=== PATIENT | female | born 1985 | race Caucasian/White ===

== ENCOUNTER 2017-05-16 08:45 | Emergency (ER) | payer OTHER ==
[2017-05-16 11:09] LABS: BASO % 0.2 % (0.0-1.0); EOS % 0.6 % (0.0-3.0); HEMATOCRIT 38.4 % (36.0-47.0); HEMOGLOBIN 12.7 g/dl (12.0-16.0); IMMATURE GRANULOCYTE % 0.2 % (0-3.0); LYMPH # 1.7 10^3/uL (1.5-4.5); LYMPH % 33.5 % (24.0-44.0); MEAN CORPUSCULAR HEMOGLOBIN 26.7 pg (27.0-33.0); MEAN CORPUSCULAR HGB CONC 33.1 g/dl (32.0-36.5); MEAN CORPUSCULAR VOLUME 80.8 fl (80.0-96.0); MONO # 0.5 10^3/uL (0.0-0.8); NEUTROPHILS # 2.8 10^3/uL (1.8-7.7); NEUTROPHILS % 56.5 % (36.0-66.0); PLATELET COUNT, AUTOMATED 163 10^3/uL (150-450); RED BLOOD COUNT 4.75 10^6/uL (4.00-5.40); RED CELL DISTRIBUTION WIDTH 14.6 % (11.5-14.5)
[2017-05-16 11:23] LABS: CALCIUM OXALATE CRYSTALS RFX SMALL; KETONE, URINE AUTO RFX TRACE mg/dL (NEGATIVE); LEUKOCYTE ESTERASE UR AUTO RFX NEGATIVE (NEGATIVE); MUCUS, URINE RFX SMALL (NEGATIVE); NITRITE, URINE AUTO RFX NEGATIVE (NEGATIVE); RBC, URINE AUTO RFX 1 /HPF (0-3); SPECIFIC GRAVITY UR AUTO RFX 1.027 (1.002-1.035); SQUAM EPITHELIAL CELL UR AURFX 1 /HPF (0-6); WBC, URINE AUTO RFX 0 /HPF (0-3)
[2017-05-16 11:55] LABS: ANION GAP 9 MEQ/L (8-16); BLOOD UREA NITROGEN 10 MG/DL (7-18); CALCIUM LEVEL 8.6 MG/DL (8.5-10.1); CARBON DIOXIDE LEVEL 25 MEQ/L (21-32); CHLORIDE LEVEL 105 MEQ/L (98-107); CREATININE FOR GFR 0.61 MG/DL (0.55-1.30); GLOMERULAR FILTRATION RATE > 60.0 (>60); GLUCOSE, FASTING 106 MG/DL (70-100); HCG, SERUM QUANTITATIVE 39051 MIU/ML; POTASSIUM SERUM 4.1 MEQ/L (3.5-5.1); SODIUM LEVEL 139 MEQ/L (136-145)
[2017-05-16 16:06] LABS: CHLAMYDIA DNA AMPLIFICATION NEGATIVE (NEGATIVE); GC DNA AMPLIFICATION NEGATIVE (NEGATIVE)
== END 2017-05-16 13:32 | disposition home or self-care (01) ==
LOC: M ED 08:45
DX: O26.851 Spotting complicating pregnancy, first trimester (principal); N93.9 Abnormal uterine and vaginal bleeding, unspecified; O24.415 Gestational diabetes mellitus in pregnancy, controlled by oral hypoglycemic drugs; O16.1 Unspecified maternal hypertension, first trimester; O99.281 Endocrine, nutritional and metabolic diseases complicating pregnancy, first trimester; E28.2 Polycystic ovarian syndrome; O99.341 Other mental disorders complicating pregnancy, first trimester; F33.9 Major depressive disorder, recurrent, unspecified; F41.9 Anxiety disorder, unspecified; O99.611 Diseases of the digestive system complicating pregnancy, first trimester; K21.9 Gastro-esophageal reflux disease without esophagitis; Z3A.01 Less than 8 weeks gestation of pregnancy; Z88.8 Allergy status to other drugs, medicaments and biological substances; Z88.1 Allergy status to other antibiotic agents; Z88.2 Allergy status to sulfonamides; Z86.69 Personal history of other diseases of the nervous system and sense organs; Z87.448 Personal history of other diseases of urinary system; Z87.891 Personal history of nicotine dependence
CPT/HCPCS: 76801

== ENCOUNTER → 2017-06-11 | Outpatient (CLI) | payer OTHER | LOC: M EKG 16:49 | DX: O24.111 Pre-existing type 2 diabetes mellitus, in pregnancy, first trimester (principal); Z3A.09 9 weeks gestation of pregnancy; E11.9 Type 2 diabetes mellitus without complications ==

== ENCOUNTER 2017-07-12 13:01 | Emergency (ER) | payer OTHER ==
[2017-07-12 14:25] LABS: HEMATOCRIT 36.4 % (36.0-47.0); HEMOGLOBIN 12.1 g/dl (12.0-15.5); MEAN CORPUSCULAR HEMOGLOBIN 26.6 pg (27.0-33.0); MEAN CORPUSCULAR HGB CONC 33.2 g/dl (32.0-36.5); PLATELET COUNT, AUTOMATED 177 10^3/uL (150-450); RED BLOOD COUNT 4.55 10^6/uL (4.00-5.40); RED CELL DISTRIBUTION WIDTH 14.1 % (11.5-14.5); WHITE BLOOD COUNT 5.8 10^3/uL (4.0-10.0)
== END 2017-07-12 15:18 | disposition home or self-care (01) ==
LOC: M ED 13:01
DX: O99.282 Endocrine, nutritional and metabolic diseases complicating pregnancy, second trimester (principal); E86.0 Dehydration; O24.419 Gestational diabetes mellitus in pregnancy, unspecified control; O16.2 Unspecified maternal hypertension, second trimester; O98.512 Other viral diseases complicating pregnancy, second trimester; E28.2 Polycystic ovarian syndrome; O99.612 Diseases of the digestive system complicating pregnancy, second trimester; K21.9 Gastro-esophageal reflux disease without esophagitis; Z3A.16 16 weeks gestation of pregnancy; Z79.84 Long term (current) use of oral hypoglycemic drugs; Z79.899 Other long term (current) drug therapy; Z88.1 Allergy status to other antibiotic agents; Z88.2 Allergy status to sulfonamides; Z88.8 Allergy status to other drugs, medicaments and biological substances; Z98.890 Other specified postprocedural states; Z87.19 Personal history of other diseases of the digestive system; Z87.42 Personal history of other diseases of the female genital tract
CPT/HCPCS: 85027

== ENCOUNTER → 2017-10-15 | Outpatient (CLI) | payer OTHER | LOC: M CARPUL 08:06 | DX: O24.113 Pre-existing type 2 diabetes mellitus, in pregnancy, third trimester (principal) | CPT/HCPCS: 93306 ==

== ENCOUNTER 2017-12-21 21:49 | Outpatient (CLI) | payer OTHER ==
[2017-12-21 22:11] LABS: HEMATOCRIT 39.3 % (36.0-47.0); MEAN CORPUSCULAR HEMOGLOBIN 27.4 pg (27.0-33.0); MEAN CORPUSCULAR HGB CONC 33.1 g/dl (32.0-36.5); MEAN CORPUSCULAR VOLUME 82.7 fl (80.0-96.0); PLATELET COUNT, AUTOMATED 177 10^3/uL (150-450); RED BLOOD COUNT 4.75 10^6/uL (4.00-5.40); WHITE BLOOD COUNT 7.9 10^3/uL (4.0-10.0)
[2017-12-21 22:35] LABS: ALT/SGPT 24 U/L (12-78); AST/SGOT 32 U/L (7-37); BILIRUBIN,TOTAL 0.2 MG/DL (0.2-1.0); CREATININE FOR GFR 0.72 MG/DL (0.55-1.30); GLOMERULAR FILTRATION RATE > 60.0 (>60); LDH LACTATE DEHYDROGENASE 170 U/L (84-246); URIC ACID 3.7 MG/DL (2.6-6.0)
[2017-12-21 22:55] LABS: TOTAL PROTEIN,RANDOM URINE 19.8 MG/DL (0.0-12.0)
== END 2017-12-21 23:40 | disposition home or self-care (01) ==
LOC: M LDO 21:49
DX: O99.89 Other specified diseases and conditions complicating pregnancy, childbirth and the puerperium (principal); R51 Headache; O47.1 False labor at or after 37 completed weeks of gestation; Z3A.38 38 weeks gestation of pregnancy
CPT/HCPCS: 59025

== ENCOUNTER 2017-12-25 22:18 | Inpatient (IN) | payer OTHER ==
[2017-12-26 00:20] LABS: HEMATOCRIT 37.9 % (36.0-47.0); HEMOGLOBIN 12.5 g/dl (12.0-15.5); MEAN CORPUSCULAR HEMOGLOBIN 27.5 pg (27.0-33.0); MEAN CORPUSCULAR VOLUME 83.5 fl (80.0-96.0); PLATELET COUNT, AUTOMATED 178 10^3/uL (150-450); RED BLOOD COUNT 4.54 10^6/uL (4.00-5.40); RED CELL DISTRIBUTION WIDTH 14.6 % (11.5-14.5); WHITE BLOOD COUNT 8.2 10^3/uL (4.0-10.0)
[2017-12-26] MEDS: LACTATED RINGER'S 1000 ML IV (00:23)
[2017-12-26] MEDS ORDERED: miSOPROStol 25 MCG 1/4 TAB (S0191) PV (00:45)
[2017-12-26] MEDS ORDERED: miSOPROStol 50 MCG 1/2 TAB (S0191) PO (01:00)
[2017-12-26] MEDS ORDERED: OXYTOCIN DRIP 30 UNITS in APPROPRIATE DILUENT 1 EA IV (01:15)
[2017-12-26 01:19] LABS: BEDSIDE GLUCOSE 123 MG/DL (70-105)
[2017-12-26 01:37] LABS: ALT/SGPT 24 U/L (12-78); AST/SGOT 26 U/L (7-37); BILIRUBIN,TOTAL 0.2 MG/DL (0.2-1.0); CREATININE FOR GFR 0.69 MG/DL (0.55-1.30); GLOMERULAR FILTRATION RATE > 60.0 (>60); LDH LACTATE DEHYDROGENASE 185 U/L (84-246); URIC ACID 3.3 MG/DL (2.6-6.0)
[2017-12-26 03:21] LABS: BEDSIDE GLUCOSE 60 MG/DL (70-105)
[2017-12-26 05:02] LABS: BEDSIDE GLUCOSE 103 MG/DL (70-105)
[2017-12-26] MEDS: ONDANSETRON 4MG/2ML VIAL (J2405) IV (06:41)
[2017-12-26 07:22] LABS: BEDSIDE GLUCOSE 93 MG/DL (70-105)
[2017-12-26] MEDS: LR 1,000 ML IV ×2 (08:23→08:47)
[2017-12-26] MEDS ORDERED: LABETALOL 100 MG TAB PO (09:00)
[2017-12-26 09:07] LABS: BEDSIDE GLUCOSE 91 MG/DL (70-105)
[2017-12-26] MEDS ORDERED: FENTANYL 2MCG/ML ROPIVACAINE 0.2% IN 0.9% NACL 200ML IVBAG As Ordered (09:45)
[2017-12-26] MEDS ORDERED: REFRIGERATOR IV KEYS XX (10:30)
[2017-12-26] MEDS ORDERED: ePHEDrine SULFATE 25 MG/5 ML(5MG/ML) SYRINGE IV (10:30)
[2017-12-26] MEDS ORDERED: diphenhydrAMINE INJ 50MG/ML VIAL (J1200) IV (10:30)
[2017-12-26] MEDS ORDERED: ONDANSETRON 4MG/2ML VIAL (J2405) IV (10:30)
[2017-12-26] MEDS ORDERED: EPIDURAL COMMENT XX (10:30)
[2017-12-26] MEDS ORDERED: NALOXONE INJ 0.4 MG/1 ML VIAL (J2310) IV (10:30)
[2017-12-26] MEDS ORDERED: EPIDURAL/PCA KEYS XX (10:30)
[2017-12-26 11:12] LABS: BEDSIDE GLUCOSE 93 MG/DL (70-105)
[2017-12-26] MEDS: FENTANYL/ROPIVACAINE/NACL BAG 200 ML EPIDURAL (11:55)
[2017-12-26] MEDS: LIDOCAINE 1% MDV 20ML VIAL INFIL (12:39)
[2017-12-26] MEDS: OXYTOCIN DRIP 30 UNITS in APPROPRIATE DILUENT 1 EA IV ×2 (12:40→13:52)
[2017-12-26] MEDS: miSOPROStol 200 MCG TAB (S0191) PR ×2 (12:40→12:42)
[2017-12-26] MEDS: CARBOPROST TROMETHAMINE 250 MCG/ML AMP IM (12:40)
[2017-12-26 13:06] LABS: BEDSIDE GLUCOSE 101 MG/DL (70-105)
[2017-12-26] MEDS: BUTORPHANOL 2 MG/ML INJ (J0595) IV (13:43)
[2017-12-26] MEDS ORDERED: ACETAMINOPHEN TAB 650MG DOSE (2X325MG) PO (13:45)
[2017-12-26] MEDS ORDERED: METOCLOPRAMIDE INJ 10MG/2ML VIAL (J2765) IV (13:45)
[2017-12-26] MEDS ORDERED: MEASLES,MUMPS,RUBELLA VACCINE INJ (MMR-II) (90707) SC (13:45)
[2017-12-26] MEDS ORDERED: RHOGAM 300 MCG (1500 IU) INJ (J2790) IM (13:45)
[2017-12-26] MEDS: IBUPROFEN 800 MG TAB PO (18:04)
[2017-12-26] MEDS: DIBUCAINE 1% OINTMENT 30GM TOP (18:05)
[2017-12-26] MEDS: metFORMIN (GLUCOPHAGE) 500 MG TAB PO (21:00)
[2017-12-26] MEDS: DOCUSATE SODIUM 100 MG CAP PO (21:59)
[2017-12-26] MEDS: LABETALOL 100 MG TAB PO (21:59)
[2017-12-27 07:50] LABS: HEMATOCRIT 31.2 % (36.0-47.0); MEAN CORPUSCULAR HEMOGLOBIN 27.6 pg (27.0-33.0); MEAN CORPUSCULAR HGB CONC 32.7 g/dl (32.0-36.5); MEAN CORPUSCULAR VOLUME 84.6 fl (80.0-96.0); PLATELET COUNT, AUTOMATED 141 10^3/uL (150-450); RED BLOOD COUNT 3.69 10^6/uL (4.00-5.40); WHITE BLOOD COUNT 8.5 10^3/uL (4.0-10.0)
[2017-12-27 07:54] LABS: HEMOGLOBIN 10.2 g/dl (12.0-15.5)
[2017-12-27 08:05] LABS: GLUCOSE,RANDOM 93 MG/DL (LESS THAN 200)
[2017-12-27 08:34] LABS: ESTIMATED AVERAGE GLUCOSE 114 MG/DL (60-110); HEMOGLOBIN A1c 5.6 %
[2017-12-27] MEDS: FAMOTIDINE 20 MG TAB PO (08:41)
[2017-12-27] MEDS: DOCUSATE SODIUM 100 MG CAP PO ×2 (09:20→21:59)
[2017-12-27] MEDS: PRENATAL VITAMINS CHEWABLE TABLET PO (09:21)
[2017-12-27] MEDS: LABETALOL 100 MG TAB PO ×2 (09:21→21:58)
[2017-12-27] MEDS: metFORMIN (GLUCOPHAGE) 500 MG TAB PO ×2 (09:21→21:58)
[2017-12-27] MEDS: INFLUENZA QUADRIVALENT PF VACCINE 0.5ML SYRINGE (90686) IM (09:24)
[2017-12-27] MEDS ORDERED: medroxyPROGESTERone ACET IM SUSP 150 MG/ML VIAL (J1050) IM (10:00)
[2017-12-27] MEDS: DIBUCAINE 1% OINTMENT 30GM TOP (12:38)
[2017-12-27] MEDS: IBUPROFEN 800 MG TAB PO (23:54)
[2017-12-28] MEDS: DOCUSATE SODIUM 100 MG CAP PO (08:09)
[2017-12-28] MEDS: PRENATAL VITAMINS CHEWABLE TABLET PO ×2 (08:09→09:00)
[2017-12-28] MEDS: metFORMIN (GLUCOPHAGE) 500 MG TAB PO (08:09)
[2017-12-28] MEDS: LABETALOL 100 MG TAB PO (08:12)
[2017-12-28] MEDS: medroxyPROGESTERone ACET IM SUSP 150 MG/ML VIAL (J1050) IM (09:45)
== END 2017-12-28 10:30 | disposition home or self-care (01) | DRG 774 ==
LOC: M LDI 22:18 → M OBS 12-26 15:30
PROVIDERS: Obstetrics & Gynecology
PROC: 3E033VJ Introduction of Other Hormone into Peripheral Vein, Percutaneous Approach (ICD-10-PCS; 2017-12-25)
PROC: 10E0XZZ Delivery of Products of Conception, External Approach (ICD-10-PCS; principal; 2017-12-26)
PROC: 0HQ9XZZ Repair Perineum Skin, External Approach (ICD-10-PCS; 2017-12-26)
DX: O24.415 Gestational diabetes mellitus in pregnancy, controlled by oral hypoglycemic drugs (principal); O10.92 Unspecified pre-existing hypertension complicating childbirth; O72.1 Other immediate postpartum hemorrhage; Z37.0 Single live birth; Z3A.39 39 weeks gestation of pregnancy; O70.0 First degree perineal laceration during delivery; E66.9 Obesity, unspecified; O99.214 Obesity complicating childbirth; Z68.36 Body mass index [BMI] 36.0-36.9, adult; F32.9 Major depressive disorder, single episode, unspecified; O99.344 Other mental disorders complicating childbirth

== ENCOUNTER → 2018-06-20 | Outpatient (CLI) | payer OTHER ==
[~2018-06-20] MED LIST: COLA100C5 PO; DIBU1OIN TOP; FLUO20CA8 PO; FOLI1TAB11 PO; FOLI5INJ2 SC; GLUC500T PO; IBUP-1114 PO; LABE10TAB PO; MAPA500T2 PO; METF500T13 PO; PRENTAB77 PO; PROHANCE 279.3MG/ML 15ML VIAL (A9576) As Ordered ONE; PROHANCE 279.3MG/ML 5ML VIAL (A9576) As Ordered ONE; RANI15TA PO
--- NOTE | 2018-06-20 17:01 | REP ---
MRI RIGHT FOOT WITH AND WITHOUT CONTRAST: Multiple sequences were obtained prior to and following the intravenous administration of 20 mL ProHance. Osseous structures of the right foot demonstrate normal marrow signal. There is no evidence of occult fracture. No definite bone lesion is seen. Soft tissues of the foot demonstrate no significant edema or fluid collection. No ganglion cyst is seen. The tendons and ligaments at the ankle appear intact. The flexor and extensor tendons in the foot appear intact with no evidence of tenosynovitis. No joint effusions are seen. I do not see evidence of an enhancing neuroma. IMPRESSION: Essentially negative MRI right foot with and without contrast. Electronically Signed by Navin Kraft MD 06/21/2018 03:30 P
== END ==
LOC: M RAD 15:06
PROVIDERS: ATTEND Family Medicine
DX: M79.671 Pain in right foot (principal)
CPT/HCPCS: 73720; A9576

== ENCOUNTER → 2018-07-08 | Outpatient (REF) | payer OTHER ==
[~2018-07-08] MED LIST changes: -PROHANCE 279.3MG/ML 15ML VIAL (A9576) As Ordered ONE; -PROHANCE 279.3MG/ML 5ML VIAL (A9576) As Ordered ONE
[2018-07-08 18:25] LABS: APPEARANCE, URINE HAZY (CLEAR); BACTERIA, URINE AUTO 1+ (NEGATIVE); BILIRUBIN, URINE AUTO NEGATIVE (NEGATIVE); BLOOD, URINE BLOOD 3+ (NEGATIVE); COLOR, URINE YELLOW (YELLOW); GLUCOSE, URINE (UA) AUTO NEGATIVE (NEGATIVE); KETONE, URINE AUTO NEGATIVE (NEGATIVE); LEUKOCYTE ESTERASE, URINE AUTO 2+ (NEGATIVE); MUCUS, URINE SMALL (NEGATIVE); NITRITE, URINE AUTO NEGATIVE (NEGATIVE); PROTEIN, URINE AUTO NEGATIVE (NEGATIVE); RBC, URINE AUTO 26 /HPF (0-3); SQUAMOUS EPITHELIAL CELL UR AU 0 /HPF (0-6); UROBILINOGEN, URINE AUTO 0.2 mg/dL (0.0-2.0); WBC, URINE AUTO 39 /HPF (0-3)
== END ==
LOC: M LAB REF 16:49
PROVIDERS: ATTEND Physician Assistant Medical
DX: N39.0 Urinary tract infection, site not specified (principal)

== ENCOUNTER → 2019-03-07 | Outpatient (REF) | payer OTHER ==
[~2019-03-07] MED LIST changes: +FLUO20CA20 PO; -FLUO20CA8 PO
== END ==
LOC: M SFHCLERA 14:37
PROVIDERS: ATTEND Nurse Practitioner Family
DX: R30.0 Dysuria (principal)
CPT/HCPCS: 81002; 81025; 87088; 87186; G0463

== ENCOUNTER → 2019-04-02 | Outpatient (CLI) | payer OTHER ==
[~2019-04-02] MED LIST changes: +E-Z-GAS II EFFERVESCENT PACKET (SODIUM BICARB./CITRIC ACID/SIMETHICONE) As Ordered ONE; +E-Z-HD 98% w/w 340GM SUSP BTL As Ordered ONE; +E-Z-PAQUE 96% w/w SUSP 176GM BTL As Ordered ONE
--- NOTE | 2019-04-02 16:55 | REP ---
Upper GI air contrast The procedure was performed under the direct supervision of Dr. Hinkle. The images were reviewed with Dr. Hinkle The county treasurer film shows no organomegaly or pathological masses. The intestinal gas pattern is non-specific. Liquid barium and gas producing crystals were given in the erect position as well as liquid barium in the prone oblique position in order to perform a double contrast upper GI examination. The oral and pharyngeal stages of deglutition are unremarkable. Esophageal transport is prompt and efficient and there is no esophagitis, stricture, mucosal ring or hiatal hernia. Gastroesophageal reflux is not demonstrated on this examination. The stomach peralta are normally outlined . The rugal folds are smooth and regular. There is no gastritis neoplasm or ulcer disease. The duodenal peralta are normally outlined . The mucosal folds are smooth and regular. There is no duodenitis pancreatitis peptic ulcer disease or neoplasm. The visualized portion of the proximal small bowel appears normal in course and caliber. Impression: Essentially unremarkable double contrast upper GI examination. 1.3 minutes of fluoro time was utilized for this procedure. Electronically Signed by CARMEN Wells 04/02/2019 04:31 P Electronically Signed by Rafal Hinkle MD 04/02/2019 04:46 P
== END ==
LOC: M RAD 08:39
PROVIDERS: ATTEND Surgery
DX: K21.9 Gastro-esophageal reflux disease without esophagitis (principal); O24.112 Pre-existing type 2 diabetes mellitus, in pregnancy, second trimester; O10.919 Unspecified pre-existing hypertension complicating pregnancy, unspecified trimester; Z3A.00 Weeks of gestation of pregnancy not specified; O99.619 Diseases of the digestive system complicating pregnancy, unspecified trimester